=== PATIENT | male | born 1945 | race Caucasian/White ===

== ENCOUNTER → 2019-06-25 10:21 | Outpatient (BNVA) | payer MEDICARE, SELFPAY | PROVIDERS: PCP Nurse Practitioner Family; Visit Provider Surgery | DX: L98.9 Disorder of the skin and subcutaneous tissue, unspecified (principal) | CPT/HCPCS: 88304 ==

== ENCOUNTER → 2020-04-28 09:21 | Outpatient (BNVA) | payer MEDICARE, SELFPAY | PROVIDERS: PCP Nurse Practitioner Family; Visit Provider Nurse Practitioner Family | DX: E11.9 Type 2 diabetes mellitus without complications (principal); L03.90 Cellulitis, unspecified; L02.213 Cutaneous abscess of chest wall | CPT/HCPCS: 83036; 87070; 87077; 87184 ==

== ENCOUNTER 2020-05-02 09:28 | Emergency (ER) | payer MEDICARE, SELFPAY ==
[2020-05-02 09:30] VITALS: BP 180/90; PULSE 57; RESP 16; TEMP 36.7; O2SAT 99; BMI 27.9
[2020-05-02 09:39] VITALS: BP 129/78; PULSE 48; RESP 18; O2SAT 96
--- NOTE | 2020-05-02 09:42 | US_ITS ---
WS: [id number] Exam: US breast LT limited* [id number] Date/Time of Exam: 05/02/2020 10:00 AM Reason For Exam: abscess The central and lateral left breast are targeted for ultrasound evaluation. An ill-defined hyperechoic area is identified within the central and lateral left breast that apparen tly represents a phlegmon and collapsed abscess cavity. This area extends to the skin surface at abou t the 2:00 position. No significant drainable fluid collection remains. There were no other solid or cystic abnormalities identified in this region. There are several mildly prominent left axillary lymp h nodes identified. The largest measuring slightly less than 1 cm in greatest short axis dimension. S ome lymph nodes show partial fatty replacement. US/US breast LT limited* [id number] IMPRESSION: 1. Ill-defined hyperechoic area in the central and lateral left breast measurin g approximately 2.5 x 1.8 cm. This apparently represents the patient's known co llapsed abscess cavity and/or phlegmon formation. No drainable fluid collection s remain. 2. This lesion appears to extend to the skin surface at about the 2:00 retroare olar area of the left breast. 3. Several mildly prominent left axillary lymph nodes noted most likely reactiv e.
--- NOTE | 2020-05-02 10:01 | PC.NURSE ---
Abscess drained at Doctor Office on 04/28-, went back for F/U visit and physician recommended pt come to the ER for further workup
--- NOTE | 2020-05-02 10:08 | ED_ITS ---
HPI - Skin/Abscess/Foreign Bdy General: Chief complaint: Skin/Abscess/Foreign Body Stated complaint: staph infection on chest Time Seen by Provider: 05/02/20 09:36 History of Present Illness: HPI narrative: 75-year-old male presents emergency room with complaint of left chest wall pain. He had an abscess that was incised and drained at approximately the 3 o'clock position 1 to 2 cm from the areola. This was done in the office last week by midlevel. He has some packing in place the breast redness swelling and induration is progressively gotten worse and despite being on clindamycin. He has increased pain he denies any fever. MD complaint: abscess/boil Onset (ago): day(s) Location: chest (Left central chest lateral to the areola) Severity: moderate Quality: aching Pain Consistency: constant Exacerbating factors: none Context: none Associated symptoms: Deny arthralgias, chills, cough, fever(s), itching, myalgias, nausea, rigidity, short of breath, vomiting or other Treatments prior to arrival: antibiotic and other (Incision and drainage in the outpatient setting by [employer]) Review of Systems Const: Denies: fever(s) or chills ENMT: Denies: throat pain, ear or mastoid pain, nasal discharge or nasal congestion Card: Denies: chest pain, edema, dyspnea on exertion or orthopnea Resp: Denies: dyspnea, productive cough or non-productive cough GI: Denies: nausea or vomiting : Denies: flank pain, dysuria, urinary frequency or urinary urgency Skin/Breast: Denies: rash or pruritus PFSH ED PFSH: Medical History History of basal cell cancer Surgical History History of bilateral inguinal hernia repair 4 DIFFERENT SURGERIES History of colonoscopy (~1998) NORMAL Family History Denies family history of Diabetes CAD (coronary artery disease) Lung disease Cancer Stroke Social History Smoking and tobacco status: never smoked Second hand smoke exposure: No History of recent travel: No Physical Exam Const: COMMON NORMALS: no acute distress GENERAL APPEARANCE: cooperative and comfortable ORIENTATION/CONSCIOUSNESS: Yes awake, Yes oriented to person, Yes oriented to place and Yes oriented to time HENMT: COMMON NORMALS: normocephalic, atraumatic and hearing grossly normal bilaterally HEAD & SCALP: normocephalic and atraumatic Neck/C-Spine: COMMON NORMALS: no JVD Lymph: LYMPHATIC: no lymphadenopathy noted and no lymphedema noted Chest: OTHER: Left chest wall moderate induration around the areola there is an incision with packing in place about 1 to 2 cm lateral to the areola at about the 3 o'clock position packing removed there is no active drainage with palpation I cannot express any fluid. There is a little bit of axillary lymphadenopathy palpable. No fluctuant area the area is palpated Resp: COMMON NORMALS: normal respiratory effort, No retractions, No use of accessory muscles and clear to auscultation bilaterally AUSCULTATION: clear to auscultation bilaterally Cardio: COMMON NORMALS: no JVD, regular rate, regular rhythm and No murmurs present (Cardio) RATE: regular rate RHYTHM: regular rhythm GI: COMMON NORMALS: Soft to palpation and No hepatosplenomegaly present AUSCULTATION: Yes normoactive bowel sounds PALPATION: Yes Soft to palpation, No Tenderness to palpation present (GI), No Guarding due to palpation present (GI) and Yes No hepatosplenomegaly present Extremity: COMMON NORMALS: normal to inspection, capillary refill normal, no clubbing, cyanosis or edema, no calf tenderness and no pedal edema Neuro: SENSORIUM/ORIENTATION: Yes oriented to person, Yes oriented to place and Yes oriented to time Skin: COMMON NORMALS: no rashes or lesions noted GENERAL SKIN EXAM: no rashes or lesions noted Course Vital Signs: Vital signs: Vital Signs Temperature 97.9 F 05/02/20 12:38 Pulse Rate 51 L 05/02/20 12:38 Respiratory Rate 18 05/02/20 12:38 Blood Pressure 125/81 05/02/20 12:38 Pulse Oximetry 99 05/02/20 12:38 MDM - Skin/Abscess/Foreign Bdy MDM Narrative: Medical decision making narrative: Imaging and labs reviewed with the patient we will discharge him home continue the Cleocin and add Levaquin follow-up with primary care doctor. Recommend heat 2-3 times a day for 15 to 20 minutes at a time. He had been using cold to avoid that. Lab Data: Labs: Lab Results 05/02/20 05/02/20 Range/Units 10:50 10:50 WBC 6.1 (4.0-10.0) 10^3/ uL RBC 4.85 (4.1-5.3) 10^6/u L Hgb 15.0 (11.7-16.6) g/dL Hct 44.3 (42.0-52.0) % MCV 91.3 (80-94) fL MCH 30.9 (28.0-34.0) pg MCHC 33.9 (30.0-36.0) g/dL RDW 12.4 (12.1-15.1) % Plt Count 188 (130-400) 10^3/c mm MPV 10.9 H (7.4-10.4) fL Neut % (Auto) 68.5 % Lymph % (Auto) 18.0 % Petroleum % (Auto) 5.4 % Eos % (Auto) 7.2 % Baso % (Auto) 0.7 % Neut # (Auto) 4.16 (1.8-7.7) 10^3/u L Lymph # (Auto) 1.1 (0.8-4.8) 10^3/u L Petroleum # (Auto) 0.3 (0.2-0.9) 10^3/u L Eos # (Auto) 0.4 (0.0-0.8) 10^3/u L Baso # (Auto) 0.0 (0.0-0.1) 10^3/u L Nucleated RBC % (a uto) 0 % Nucleated RBCs # 0.0 /100WBC Sodium 141 (136-145) mmol/L Potassium 4.5 (3.5-5.1) mmol/L Chloride 103 (98-107) mmol/L Carbon Dioxide 29 (22-29) mmol/L Anion Gap 13.5 (5-19) BUN 17 (8-23) mg/dL Creatinine 0.8 (0.7-1.2) mg/dL GFR Calculation Not Reportable Glucose 118 H (65-115) mg/dL Calculated Osmolal ity 295 (285-295) mOsm/k g Calcium 9.3 (8.5-10.5) mg/dL Total Bilirubin 0.6 (0.15-1.2) mg/dL AST 29 (0-40) U/L ALT 26 (0-41) U/L Alkaline Phosphata se 86 (40-130) IU/L Total Protein 8.4 (6.6-8.7) g/dL Albumin 4.5 (3.5-5.2) g/dL Globulin 3.9 (1.3-4.6) g/dL Discharge Plan Discharge Patient Disposition: Home Clinical Impression: Abscess of skin or subcutaneous tissue Condition: Stable Prescriptions: New levofloxacin 750 mg tablet 750 mg PO DAILY 7 Days RF: 0 No Action Cleocin HCl 300 mg capsule 300 mg PO BID@ RF: 0 Discharge Orders: Discharge ED (Routine); Ordered 05/02/20 Ordered By: Ascencion Vincent Referrals: Julia Milian FNP [Primary Care Provider] - Discharge Diet: Usual diet Discharge Activity: Increase activity as tolerated Activity Restrictions/Additional Instructions: Follow-up with your primary care doctor within the next 5 to 7 days return to the ER if worsens. continue previously prescribed antibiotics add the new antibiotic Levaquin once daily as well. Coding Level of Care Code ED Spray Mixer for Erasmo Riojas
[2020-05-02 10:51] VITALS: BP 129/78; PULSE 52; RESP 18; O2SAT 100
[2020-05-02 11:05] LABS: Basophils % 0.7 %; Eosinophils # 0.4 10^3/uL (0.0-0.8); Eosinophils % 7.2 %; Hematocrit 44.3 % (42.0-52.0); Lymphocytes # 1.1 10^3/uL (0.8-4.8); Mean Corpuscular HGB Conc 33.9 g/dL (30.0-36.0); Mean Corpuscular Hemoglobin 30.9 pg (28.0-34.0); Mean Corpuscular Volume 91.3 fL (80-94); Mean Platelet Volume 10.9 fL (7.4-10.4); Monocytes # 0.3 10^3/uL (0.2-0.9); Monocytes % 5.4 %; Neutrophils # 4.16 10^3/uL (1.8-7.7); Neutrophils % 68.5 %; Nucleated Red Blood Cells % 0 %; Platelet Count 188 10^3/cmm (130-400); Red Blood Count 4.85 10^6/uL (4.1-5.3); Red Cell Distribution Width 12.4 % (12.1-15.1); White Blood Count 6.1 10^3/uL (4.0-10.0)
[2020-05-02 11:16] LABS: Alanine Aminotransferase 26 U/L (0-41); Albumin Level 4.5 g/dL (3.5-5.2); Alkaline Phosphatase 86 IU/L (40-130); Anion Gap 13.5 (5-19); Aspartate Amino Transferase 29 U/L (0-40); Blood Urea Nitrogen 17 mg/dL (8-23); Calcium 9.3 mg/dL (8.5-10.5); Carbon Dioxide 29 mmol/L (22-29); Chloride 103 mmol/L (98-107); Globulin 3.9 g/dL (1.3-4.6); Glucose 118 mg/dL (65-115); Osmolality Calculated 295 mOsm/kg (285-295); Potassium 4.5 mmol/L (3.5-5.1); Sodium 141 mmol/L (136-145); Total Bilirubin 0.6 mg/dL (0.15-1.2); Total Protein 8.4 g/dL (6.6-8.7)
[2020-05-02 12:38] VITALS: BP 125/81; PULSE 51; RESP 18; TEMP 36.6; O2SAT 99
== END 2020-05-02 12:40 | disposition home or self-care (01) ==
PROVIDERS: Emergency Provider Family Medicine; PCP Nurse Practitioner Family
DX: N61.1 Abscess of the breast and nipple (principal)
CPT/HCPCS: 12345; 36415; 76642; 80053; 85025; 87040; 99283